=== PATIENT | female | born 1970 | race Caucasian/White ===

== ENCOUNTER 2020-08-12 10:56 | Emergency (ER) | payer OTHER ==
[~2020-08-12] VITALS: Ht 170.2 cm; Wt 110.0 kg
[2020-08-12] MEDS ORDERED: CYCL-707 PO ×2 (11:12→13:08)
[2020-08-12] MEDS ORDERED: ATOR1TAB19 PO (11:12)
[2020-08-12] MEDS ORDERED: LISI10TA4 PO (11:12)
[2020-08-12] MEDS ORDERED: METF10004 PO (11:12)
[2020-08-12] MEDS ORDERED: OXYC-1 PO (11:12)
[2020-08-12] MEDS ORDERED: METO1TAB7 PO (11:12)
[2020-08-12] MEDS ORDERED: OMEP1CAP73 PO (11:12)
[2020-08-12] MEDS ORDERED: PERCOCET 5MG/325MG TAB PO ONE (12:15)
--- NOTE | 2020-08-12 12:41 | REP ---
INDICATION: fall. COMPARISON: No comparison study.. TECHNIQUE: Five views. FINDINGS: Lumbar vertebral body heights are preserved. Alignment is normal. The patient is status post transpedicle screw and interconnecting basilio fusion of the posterior elements L3 through L5 bilaterally. Intervertebral disc fusion devices are placed in the L3-4, L4-5, and L5-S1 disc spaces. Pedicles and posterior elements are otherwise intact. There is degenerative discogenic spurring at L2-3 and L1-2. There are clips in right upper quadrant the abdomen. Sacrum and SI joints are intact. Psoas margins are symmetric. IMPRESSION: Degenerative disc changes. Status post fusion L3 through S1 as above. No acute abnormality. No fracture seen. <Electronically signed by Henok Narvaez > 08/12/20 [id number]
--- NOTE | 2020-08-12 12:42 | REP ---
INDICATION: fall Nontraumatic hip pain. COMPARISON: None. TECHNIQUE: Frontal view of the pelvis with neutral and frog lateral views of the right hip. FINDINGS: Pelvis is intact and age-appropriate. The bilateral hips demonstrate mild symmetric age-related changes including subtle acetabular spurring. Surrounding soft tissues are normal. No evidence acute fracture or dislocation. IMPRESSION: Essentially age-appropriate examination. No fracture or dislocation. <Electronically signed by Stephen Larios > 08/12/20 [id number]
[2020-08-12] MEDS ORDERED: IBUP-1022 PO (13:08)
[2020-08-12 13:14] VITALS: BP 131/72
== END 2020-08-12 13:27 | disposition home or self-care (01) ==
LOC: M ED 10:56
DX: S39.012A Strain of muscle, fascia and tendon of lower back, initial encounter (principal); W19.XXXA Unspecified fall, initial encounter; Y92.099 Unspecified place in other non-institutional residence as the place of occurrence of the external cause; Y93.9 Activity, unspecified; Y99.9 Unspecified external cause status; I10 Essential (primary) hypertension; K21.9 Gastro-esophageal reflux disease without esophagitis; G89.29 Other chronic pain; F17.200 Nicotine dependence, unspecified, uncomplicated; M43.26 Fusion of spine, lumbar region; M25.78 Osteophyte, vertebrae; Z79.84 Long term (current) use of oral hypoglycemic drugs; Z79.899 Other long term (current) drug therapy; Z88.5 Allergy status to narcotic agent